=== PATIENT | female | born 2000 | race Caucasian/White ===

== ENCOUNTER 2019-10-02 04:23 | Emergency (ER) | payer BC ==
[~2019-10-02] VITALS: Ht 157.5 cm; Wt 52.6 kg
--- NOTE | 2019-10-02 04:40 | NUR ---
Dr. Márquez at bedside for MSE.
--- NOTE | 2019-10-02 04:50 | NUR ---
Pt provided urine sample, sent to lab.
[2019-10-02] MEDS ORDERED: HYDROCODONE/APAP 5-325MG TABLET ONE (04:59)
[2019-10-02] MEDS ORDERED: HYDROCODONE/APAP 5-325MG TABLET PO ONE (05:00)
--- NOTE | 2019-10-02 05:14 | NUR ---
Ultrasound at bedside.
[2019-10-02 05:25] LABS: *BILIRUBIN,URIN NEGATIVE (NEGATIVE); *BLOOD, URINE NEGATIVE (NEGATIVE); *CLARITY,URINE CLEAR (CLEAR); *COLOR,URINE YELLOW (YELLOW); *KETONES,URINE NEGATIVE (NEGATIVE); *UROBILINOGEN,URINE 0.2 E.U./dl (NORMAL); LEUKOCYTE ESTERASE ,URINE NEGATIVE (NEGATIVE); NITRITE, URINE NEGATIVE (NEGATIVE); UGLUCOSE NEGATIVE (NEGATIVE)
[2019-10-02 05:30] LABS: BASOPHILS # (AUTO) 0.1 K/uL (0.0-8.0); BASOPHILS % (AUTO) 1.4 % (0.0-2.0); EOSINOPHILS # (AUTO) 0.1 K/uL (0.0-0.7); EOSINOPHILS % (AUTO) 1.9 % (0.0-7.0); HEMATOCRIT 33.2 % (31.2-41.9); HEMOGLOBIN 10.9 g/dL (10.9-14.3); LYMPHOCYTES # (AUTO) 2.1 K/uL (20.0-40.0); LYMPHOCYTES % (AUTO) 34.2 % (20.5-74.5); MEAN CORPUSCULAR HEMOGLOBIN 26.5 uug (24.7-32.8); MEAN CORPUSCULAR HGB CONC 33 g/dL (32.3-35.6); MONOCYTES # (AUTO) 0.6 K/uL (2.0-10.0); MONOCYTES % (AUTO) 9.6 % (0-11); NEUTROPHILS # (AUTO) 3.3 K/uL (1.8-8.9); NEUTROPHILS % (AUTO) 52.9 % (31.5-64.5); PLATELET COUNT (AUTO) 251 K/uL (179-408); WHITE BLOOD COUNT (AUTO) 6.2 K/uL (3.8-11.8)
[2019-10-02 05:39] LABS: BILIRUBIN,DIRECT 0.1 mg/dL (0.0-0.2); BILIRUBIN,TOTAL 0.1 mg/dL (0.2-1.0); CREATININE 0.8 mg/dL (0.6-1.3); POTASSIUM 3.7 mmol/L (3.5-5.1); TOTAL PROTEIN, SERUM 7.2 g/dL (6.4-8.2)
[2019-10-02 05:41] LABS: *URINE HCG, QUAL NEGATIVE (NEGATIVE)
--- NOTE | 2019-10-02 05:43 | NUR ---
Dr. Márquez performing a pelvic exam, chapperoned by Celeste HENDERSON.
[2019-10-02] MEDS ORDERED: AZITHROMYCIN 250 MG TABLET PO ONE (06:00)
[2019-10-02] MEDS ORDERED: CEFTRIAXONE 500 MG VIAL IM ONE (06:00)
[2019-10-02] MEDS ORDERED: CEFTRIAXONE 500 MG VIAL ONE (06:03)
[2019-10-02] MEDS ORDERED: LIDOCAINE HCL 1% 20 ML VIAL ONE (06:04)
[2019-10-02] MEDS ORDERED: AZITHROMYCIN 250 MG TABLET ONE (06:04)
--- NOTE | 2019-10-02 06:20 | NUR ---
Patient discharged to home in stable condition. Written and verbal after care instructions given. Patient verbalizes understanding of instructions. Stressed follow up or return to ER for worsening s/s. Pt provided results of labs and ultrasound. Pt out of ER with steady gait, no acute signs of distress, VSS, all belongings taken, to be driven home by mother via private vehicle.
[2019-10-02 06:22] VITALS: BP 130/80
== END 2019-10-02 06:24 | disposition home or self-care (01) ==
LOC: ER 04:26
DX: R10.30 Lower abdominal pain, unspecified (principal); R30.0 Dysuria; Z97.5 Presence of (intrauterine) contraceptive device; M54.5 Low back pain; R11.0 Nausea
CPT/HCPCS: 36415; 76856; 80048; 80076; 81001; 83690; 84703; 85025; 96372; 99284; J0696; J3490; A4663; Q0144

== ENCOUNTER 2019-10-29 13:56 | Emergency (ER) | payer BC ==
[~2019-10-29] VITALS: Ht 157.5 cm; Wt 52.2 kg
[~2019-10-29 13:56] MED LIST: LISD30CA2 PO
--- NOTE | 2019-10-29 14:05 | NUR ---
Dr. Oliver here to see pt for MSE.
[2019-10-29] MEDS ORDERED: predniSONE 50 MG TABLET PO ONE (14:15)
[2019-10-29] MEDS ORDERED: predniSONE 50 MG TABLET ONE (14:15)
--- NOTE | 2019-10-29 14:15 | NUR ---
Patient discharged to home in stable condition. Written and verbal after care instructions given. Patient verbalizes understanding of instructions. Stressed follow up or return to ER for worsening s/s.
== END 2019-10-29 14:15 | disposition home or self-care (01) ==
LOC: ER 13:56
DX: T63.301A Toxic effect of unspecified spider venom, accidental (unintentional), initial encounter (principal); T78.40XA Allergy, unspecified, initial encounter; Y92.89 Other specified places as the place of occurrence of the external cause; F98.8 Other specified behavioral and emotional disorders with onset usually occurring in childhood and adolescence; Z79.899 Other long term (current) drug therapy
CPT/HCPCS: 99283; J7512; A4663